=== PATIENT | female | born 2000 | race African-American/Black ===

== ENCOUNTER 2022-08-20 07:27 | Day surgery (SDC) | payer OTHER ==
[~2022-08-20] VITALS: Ht 167.6 cm; Wt 70.7 kg
[~2022-08-20 07:27] MED LIST: LIDOCAINE 2% 100MG/5ML SDV (FOR ANES.) As Ordered ONE
[2022-08-20] MEDS ORDERED: propofoL 200 MG/20 ML VIAL As Ordered ONE (08:02)
[2022-08-20] MEDS ORDERED: ONDANSETRON 4MG 2ML VIAL As Ordered ONE (08:03)
[2022-08-20] MEDS ORDERED: fentaNYL 100 MCG/2 ML INJECTION As Ordered ONE (08:03)
[2022-08-20] MEDS ORDERED: dexameTHASONE 4 MG/ML 1ML VIAL (J1100 PER 1MG) As Ordered ONE (08:03)
[2022-08-20] MEDS ORDERED: MIDAZOLAM INJ 2MG/2ML VIAL (J2250 PER 1MG) As Ordered ONE (08:03)
[2022-08-20 08:15] LABS: HEMATOCRIT 37.1 % (36.0-47.0); HEMOGLOBIN 12.1 g/dl (12.0-15.5)
[2022-08-20] MEDS ORDERED: LR 1,000 ML IV SCH ×2 (08:20→10:20)
[2022-08-20 08:45] LABS: POTASSIUM SERUM 3.9 MEQ/L (3.5-5.1)
[2022-08-20] MEDS ORDERED: LEVONORGESTREL 52MG (MIRENA) IUD As Ordered ONE (09:03)
[2022-08-20] MEDS: LIDOCAINE 1% SDV 30ML VIAL As Ordered ONE ×2 (09:03→09:39)
[2022-08-20] MEDS ORDERED: KETOROLAC 60MG 2ML VIAL As Ordered ONE (09:57)
[2022-08-20] MEDS ORDERED: fentaNYL 100 MCG/2 ML INJECTION IV PRN (10:20)
[2022-08-20] MEDS ORDERED: METOCLOPRAMIDE INJ 10MG/2ML VIAL (J2765 PER 1) IV PRN (10:20)
[2022-08-20] MEDS ORDERED: ONDANSETRON 4MG 2ML VIAL IV PRN (10:20)
[2022-08-20] MEDS: oxyCODONE 5MG TAB PO PRN ×2 (10:35→11:19)
[2022-08-20 11:25] VITALS: BP 123/65
== END 2022-08-20 12:00 | disposition home or self-care (01) ==
LOC: M SDC 07:27
PROVIDERS: ATTEND Obstetrics & Gynecology
DX: T83.32XA Displacement of intrauterine contraceptive device, initial encounter (principal); Z91.013 Allergy to seafood
CPT/HCPCS: 36415; 58300; 58562; 80051; 81025; 85014; 85018; 86850; 86900; 86901; J1100; J1885; J2250; J2405; J3010; J7298